=== PATIENT | male | born 1950 | race Caucasian/White ===

== ENCOUNTER 2020-08-18 14:14 | Inpatient (IN) ==
[2020-08-18] MEDS ORDERED: *HR* Dextrose 50 % in Water (Vial) 50 ML VIAL IVP PRN (16:35)
[2020-08-18] MEDS ORDERED: D5% in Water 1,000 ML IVC PRN (16:35)
[2020-08-18] MEDS ORDERED: Dextrose Gel 15 GM/37.5 ML TUBE PO PRN ×2 (16:35)
[2020-08-18] MEDS ORDERED: Ipratropium/Albuterol Neb 3 ML IH PRN (16:36)
[2020-08-18] MEDS ORDERED: Ondansetron ODT 4 MG TAB.RAPDIS SL PRN (16:36)
[2020-08-18] MEDS ORDERED: Acetaminophen 325 MG TABLET PO PRN (16:36)
[2020-08-18] MEDS ORDERED: Insulin DETEMIR 100 UNIT/ML per UNIT SUBQ ONE (21:00)
[2020-08-18] MEDS: Insulin LISPRO 300 UNITS/3 ML VIAL SUBQ SCH (21:12)
[2020-08-19] MEDS: Insulin LISPRO 300 UNITS/3 ML VIAL SUBQ SCH ×8 (04:30→21:04)
[2020-08-19] MEDS: *HR* Enoxaparin 40 MG/0.4 ML SYRINGE SQ SCH (05:43)
[2020-08-19 06:22] LABS: Basophils % 0.5 %; Eosinophils # 0.1 K/mcL (0.0-0.6); Hematocrit 40.7 % (37.5-50.1); Hemoglobin 13.7 g/dL (12.9-16.9); Immature Granulocytes % 0.7 % (0-4); Lymphocytes % 27.5 %; Mean Corpuscular HGB Conc 33.7 g/dL (31.6-35.5); Mean Corpuscular Hemoglobin 30.5 pg (28.0-33.3); Mean Corpuscular Volume 90.6 fL (83.0-100.0); Mean Platelet Volume 9.9 fL (9.4-12.4); Monocytes # 0.7 K/mcL (0.0-1.3); Monocytes % 9.8 %; Neutrophils # 4.4 K/mcL (1.6-8.9); Platelet Count 221 K/mcL (140-400); Red Blood Count 4.49 M/mcL (4.19-5.50); Segmented Neutrophils % 60.5 %; White Blood Count 7.3 K/mcL (4.3-11.1)
[2020-08-19 06:39] LABS: BUN/Creatinine Ratio 16 (6-26); Blood Urea Nitrogen 13 mg/dL (8-23); Calcium 8.9 mg/dL (8.6-10.3); Carbon Dioxide 30 mEq/L (23-29); Chloride 103 mEq/L (98-107); Glucose 154 mg/dL (70-105); Osmolality,Calculated 291 (280-300); Sodium 139 mEq/L (136-145); eGFR For African Americans > 60 (> 60); eGFR For Non-African Americans > 60 (> 60)
[2020-08-19] MEDS: Nicotine 21 MG PATCH.TD24 TD SCH (08:22)
[2020-08-19] MEDS: Insulin DETEMIR 100 UNIT/ML X5UNITS SUBQ SCH ×2 (08:23→19:53)
[2020-08-19] MEDS: Sennosides/Docusate Sodium TABLET PO SCH (09:37)
[2020-08-20] MEDS: *HR* Enoxaparin 40 MG/0.4 ML SYRINGE SQ SCH (06:32)
[2020-08-20] MEDS: Nicotine 21 MG PATCH.TD24 TD SCH (08:21)
[2020-08-20] MEDS: Insulin LISPRO 300 UNITS/3 ML VIAL SUBQ SCH ×7 (08:21→20:32)
[2020-08-20] MEDS: Insulin DETEMIR 100 UNIT/ML X5UNITS SUBQ SCH ×2 (08:21→20:16)
[2020-08-20] MEDS: Sennosides/Docusate Sodium TABLET PO SCH (08:21)
[2020-08-21] MEDS: *HR* Enoxaparin 40 MG/0.4 ML SYRINGE SQ SCH (05:31)
[2020-08-21] MEDS: Insulin LISPRO 300 UNITS/3 ML VIAL SUBQ SCH ×7 (08:07→20:22)
[2020-08-21] MEDS: Sennosides/Docusate Sodium TABLET PO SCH (08:09)
[2020-08-21] MEDS: Nicotine 21 MG PATCH.TD24 TD SCH (08:10)
[2020-08-21] MEDS: Insulin DETEMIR 100 UNIT/ML X5UNITS SUBQ SCH ×2 (08:11→20:22)
[2020-08-21] MEDS: Budesonide/Formoterol 160/4.5 1 PUFF INH IH SCH (20:52)
[2020-08-22] MEDS: *HR* Enoxaparin 40 MG/0.4 ML SYRINGE SQ SCH (05:59)
[2020-08-22] MEDS: Insulin LISPRO 300 UNITS/3 ML VIAL SUBQ SCH ×7 (08:39→22:53)
[2020-08-22] MEDS: Nicotine 21 MG PATCH.TD24 TD SCH (09:34)
[2020-08-22] MEDS: Sennosides/Docusate Sodium TABLET PO SCH (09:34)
[2020-08-22] MEDS: Insulin DETEMIR 100 UNIT/ML X5UNITS SUBQ SCH ×2 (09:37→22:52)
[2020-08-22] MEDS: Budesonide/Formoterol 160/4.5 1 PUFF INH IH SCH ×2 (11:25→21:30)
[2020-08-23] MEDS: *HR* Enoxaparin 40 MG/0.4 ML SYRINGE SQ SCH (06:36)
[2020-08-23] MEDS: Sennosides/Docusate Sodium TABLET PO SCH (08:27)
[2020-08-23] MEDS: Nicotine 21 MG PATCH.TD24 TD SCH (08:27)
[2020-08-23] MEDS: Insulin DETEMIR 100 UNIT/ML X5UNITS SUBQ SCH ×2 (08:27→20:21)
[2020-08-23] MEDS: Insulin LISPRO 300 UNITS/3 ML VIAL SUBQ SCH ×7 (08:28→20:22)
[2020-08-23] MEDS: Budesonide/Formoterol 160/4.5 1 PUFF INH IH SCH ×2 (10:33→22:24)
[2020-08-24] MEDS: Budesonide/Formoterol 160/4.5 1 PUFF INH IH SCH ×2 (08:20→21:47)
[2020-08-24] MEDS: Sennosides/Docusate Sodium TABLET PO SCH (08:43)
[2020-08-24] MEDS: Insulin DETEMIR 100 UNIT/ML X5UNITS SUBQ SCH ×2 (08:43→20:09)
[2020-08-24] MEDS: *HR* Enoxaparin 40 MG/0.4 ML SYRINGE SQ SCH (08:43)
[2020-08-24] MEDS: Nicotine 21 MG PATCH.TD24 TD SCH (08:43)
[2020-08-24] MEDS: Insulin LISPRO 300 UNITS/3 ML VIAL SUBQ SCH ×7 (08:44→20:09)
[2020-08-25] MEDS: *HR* Enoxaparin 40 MG/0.4 ML SYRINGE SQ SCH (06:03)
[2020-08-25] MEDS: Insulin LISPRO 300 UNITS/3 ML VIAL SUBQ SCH ×4 (07:29→11:33)
[2020-08-25 07:38] LABS: Basophils # 0.1 K/mcL (0.0-0.2); Basophils % 0.9 %; Eosinophils # 0.1 K/mcL (0.0-0.6); Eosinophils % 1.4 %; Hematocrit 41.1 % (37.5-50.1); Hemoglobin 13.7 g/dL (12.9-16.9); Immature Granulocytes % 0.2 % (0-4); Lymphocytes # 1.6 K/mcL (0.6-4.6); Lymphocytes % 23.6 %; Mean Corpuscular HGB Conc 33.3 g/dL (31.6-35.5); Mean Corpuscular Hemoglobin 30.4 pg (28.0-33.3); Mean Corpuscular Volume 91.3 fL (83.0-100.0); Mean Platelet Volume 10.3 fL (9.4-12.4); Monocytes # 0.6 K/mcL (0.0-1.3); Monocytes % 9.3 %; Neutrophils # 4.3 K/mcL (1.6-8.9); Platelet Count 264 K/mcL (140-400); Red Cell Distribution Width 13.1 % (11.5-14.5); Segmented Neutrophils % 64.6 %; White Blood Count 6.6 K/mcL (4.3-11.1)
[2020-08-25 07:39] VITALS: BP 97/58
[2020-08-25 08:01] LABS: BUN/Creatinine Ratio 14 (6-26); Blood Urea Nitrogen 10 mg/dL (8-23); Calcium 8.8 mg/dL (8.6-10.3); Carbon Dioxide 25 mEq/L (23-29); Chloride 105 mEq/L (98-107); Glucose 161 mg/dL (70-105); Osmolality,Calculated 291 (280-300); Potassium 3.6 mEq/L (3.5-5.1); Sodium 139 mEq/L (136-145); eGFR For African Americans > 60 (> 60); eGFR For Non-African Americans > 60 (> 60)
[2020-08-25] MEDS: Nicotine 21 MG PATCH.TD24 TD SCH (08:33)
[2020-08-25] MEDS: Sennosides/Docusate Sodium TABLET PO SCH (08:34)
[2020-08-25] MEDS: Insulin DETEMIR 100 UNIT/ML X5UNITS SUBQ SCH (08:35)
[2020-08-25] MEDS: Budesonide/Formoterol 160/4.5 1 PUFF INH IH SCH (09:44)
== END 2020-08-25 15:58 | disposition home or self-care (01) | DRG 946 ==
LOC: INPPIK 20:02
PROVIDERS: ADMIT Family Medicine; ATTEND Family Medicine